=== PATIENT | female | born 1985 | race Caucasian/White ===

== ENCOUNTER 2017-06-18 11:50 | Emergency (ER) | payer BC, OTHER ==
[2017-06-18 12:00] VITALS: RESP 18
[2017-06-18] MEDS ORDERED: methylPREDNISolone SOD SUCCI 125 MG/2 ML VIAL IM STA (12:09)
[2017-06-18] MEDS ORDERED: IPRATROPIUM-ALBUTEROL 3 ML NEB INHALATION STA (12:09)
--- NOTE | 2017-06-18 12:18 | ED ---
General Adult HPI - General Chief complaint: Shortness of Breath Stated complaint: JOB Time Seen by Provider: 06/18/17 12:01 Source: patient, RN notes reviewed Mode of arrival: ambulatory Limitations: no limitations - History of Present Illness Initial comments: Patient 32-year-old female with significant past medical history for asthma, who presents emergency room today with a chief complaint of asthma exacerbation. She does admit that she was at work when she began feeling increased tightness. She states she tried her inhaler. Does not have access to her nebulizer at work and came here to the emergency room. Patient does admit to having is over chest which is consistent with asthma that she's had in the past. She doesn't that her last today she's been having some symptoms but was greatly increased this morning while at work. Patient denies any other complaints or associated symptoms at this time. Patient denies any recent fever , chills, shortness of breath, chest pain, back pain, abdominal pain, nausea or vomiting, numbness or tingling, dysuria or hematuria, constipation or diarrhea, headaches or visual changes, or any other complaints. - Related Data Home Medications Medication Instructions Recorded Confirmed Mometasone/Formoterol [Dulera 200 2 puff INHALATION RT-BID 06/18/17 06/18/17 Mcg/5 Mcg Inhaler] Montelukast Sodium [Singulair] 10 mg PO HS 06/18/17 06/18/17 Phentermine HCl [Adipex-P] 37.5 mg PO QAM 06/18/17 06/18/17 Pseudoephedrine HCl [Sudafed] 30 mg PO Q4HR PRN 06/18/17 06/18/17 Tri-Mary 28 1 tab PO HS 06/18/17 06/18/17 Previous Rx's Medication Instructions Recorded Fluticasone Propionate [Flonase 1 - 2 spray EA NOSTRIL DAILY 5 Days 06/18/17 Allergy Relief] predniSONE 60 mg PO DAILY 5 Days 06/18/17 Allergies Allergy/AdvReac Type Severity Reaction Status Date / Time beclomethasone [From Qvar] Allergy Nausea Verified 06/18/17 12:59 Review of Systems ROS Statement: Those systems with pertinent positive or pertinent negative responses have been documented in the HPI. ROS Other: All systems not noted in ROS Statement are negative. Past Medical History Past Medical History: Asthma History of Any Multi-Drug Resistant Organisms: None Reported Past Surgical History: Section Additional Past Surgical History / Comment(s): Dilation and curettage Past Psychological History: No Psychological Hx Reported Smoking Status: Never smoker Past Alcohol Use History: None Reported Past Drug Use History: None Reported General Exam - General Exam Comments Initial Comments: General: The patient is awake and alert, in no distress, and does not appear acutely ill. Eye: Pupils are equal, round and reactive to light, extra-ocular movements are intact. No nystagmus. There is normal conjunctiva bilaterally. No signs of icterus. Ears, nose, mouth and throat: There are moist mucous membranes and no oral lesions. Neck: The neck is supple, there is no tenderness or JVD. Cardiovascular: There is a regular rate and rhythm. No murmur, rub or gallop is appreciated. Respiratory: Lungs are clear to auscultation, respirations are non-labored, breath sounds are equal. No wheezes, stridor, rales, or rhonchi. Musculoskeletal: Normal ROM, no tenderness. Strength 5/5. Sensation intact. Pulses equal bilaterally 2+. Neurological: A&O x 3. CN II-XII intact, There are no obvious motor or sensory deficits. Coordination appears grossly intact. Speech is normal. Skin: Skin is warm and dry and no rashes or lesions are noted. Psychiatric: Cooperative, appropriate mood & affect, normal judgment. Limitations: no limitations Course Vital Signs 06/18/17 06/18/17 06/18/17 11:58 12:19 12:36 Temperature 98.2 F Pulse Rate 73 72 77 Respiratory 18 Rate Blood Pressure 118/70 O2 Sat by Pulse 98 Oximetry Medical Decision Making - Medical Decision Making Patient given breathing treatment here in the emergency room also shot of steroids. She is feeling much better. Vitals are stable. Patient feeling well. Will be discharged home advised to continue with her breathing treatments at home. Will be continued on steroids. Advised to follow-up family doctor return to emergency room for any other concerns. Disposition Clinical Impression: Asthma exacerbation Disposition: HOME SELF-CARE Condition: Good Instructions: Bronchospasm (ED) Additional Instructions: Please use medication as discussed. Please follow-up with family doctor in the next 2 days of symptoms have not improved. Please return to emergency room if the symptoms increase or worsen or for any other concerns. Prescriptions: Fluticasone Propionate [Flonase Allergy Relief] 1 - 2 spray EA NOSTRIL DAILY 5 Days predniSONE 60 mg PO DAILY 5 Days Referrals: Jona Aaron DO [Primary Care Provider] - 1-2 days Time of Disposition: 13:11
[2017-06-18 13:25] VITALS: BP 127/81; PULSE 98; TEMP 97.5
== END 2017-06-18 13:24 | disposition home or self-care (01) ==
LOC: EC 11:50
DX: J45.901 Unspecified asthma with (acute) exacerbation (principal); Z79.51 Long term (current) use of inhaled steroids; Z79.899 Other long term (current) drug therapy; Z88.8 Allergy status to other drugs, medicaments and biological substances
CPT/HCPCS: 94640; 99284; 96372; J2930

== ENCOUNTER 2017-10-29 08:19 | Emergency (ER) | payer BC, OTHER ==
[2017-10-29 08:31] VITALS: BP 124/76; PULSE 95; RESP 18; TEMP 100.1
--- NOTE | 2017-10-29 08:46 | ED ---
General Adult HPI - General Chief complaint: Upper Respiratory Infection Stated complaint: Sore throat Time Seen by Provider: 10/29/17 08:33 Source: patient, RN notes reviewed Mode of arrival: ambulatory Limitations: no limitations - History of Present Illness Initial comments: The patient is a 32-year-old female who presents emergency room today with chief complaint of cough congestion and body aches over the last 2 days. She admits that symptoms started 2 days ago. She missed a sore throat. States it hurts when she swallows. States she's had chills recorded temperatures. States she has felt hot at times. Patient denies any other sick contacts at home. Patient denies any recent shortness of breath, chest pain, back pain, abdominal pain, nausea or vomiting, numbness or tingling, dysuria or hematuria, constipation or diarrhea, headaches or visual changes, or any other complaints. - Related Data Home Medications Medication Instructions Recorded Confirmed Mometasone/Formoterol [Dulera 200 2 puff INHALATION RT-BID 06/18/17 10/29/17 Mcg/5 Mcg Inhaler] Montelukast Sodium [Singulair] 10 mg PO HS 06/18/17 10/29/17 Tri-Mary 28 1 tab PO HS 06/18/17 10/29/17 D-Methorphan/PE/Acetaminophen 2 tab PO DAILY PRN 10/29/17 10/29/17 [Theraflu Expressmax Day Caplet] Previous Rx's Medication Instructions Recorded Oseltamivir [Tamiflu] 75 mg PO Q12HR 5 Days cap 10/29/17 Allergies Allergy/AdvReac Type Severity Reaction Status Date / Time beclomethasone [From Qvar] AdvReac Nausea Verified 10/29/17 08:53 Review of Systems ROS Statement: Those systems with pertinent positive or pertinent negative responses have been documented in the HPI. ROS Other: All systems not noted in ROS Statement are negative. Past Medical History Past Medical History: Asthma History of Any Multi-Drug Resistant Organisms: None Reported Past Surgical History: Section Additional Past Surgical History / Comment(s): Dilation and curettage Past Psychological History: No Psychological Hx Reported Smoking Status: Never smoker Past Alcohol Use History: None Reported Past Drug Use History: None Reported General Exam - General Exam Comments Initial Comments: General: The patient is awake and alert, in no distress, and does not appear acutely ill. Eye: Pupils are equal, round and reactive to light, extra-ocular movements are intact. No nystagmus. There is normal conjunctiva bilaterally. No signs of icterus. Ears, nose, mouth and throat: There are moist mucous membranes and no oral lesions. Neck: The neck is supple, there is no tenderness or JVD. Cardiovascular: There is a regular rate and rhythm. No murmur, rub or gallop is appreciated. Respiratory: Lungs are clear to auscultation, respirations are non-labored, breath sounds are equal. No wheezes, stridor, rales, or rhonchi. Musculoskeletal: Normal ROM, no tenderness. Strength 5/5. Sensation intact. Pulses equal bilaterally 2+. Neurological: A&O x 3. CN II-XII intact, There are no obvious motor or sensory deficits. Coordination appears grossly intact. Speech is normal. Skin: Skin is warm and dry and no rashes or lesions are noted. Psychiatric: Cooperative, appropriate mood & affect, normal judgment. Limitations: no limitations Course Vital Signs 10/29/17 08:28 Temperature 100.1 F H Pulse Rate 95 Respiratory 18 Rate Blood Pressure 124/76 O2 Sat by Pulse 98 Oximetry Medical Decision Making - Medical Decision Making Patient's chest x-rays negative. Patient's symptoms are consistent with influenza. Patient will be treated with Tamiflu. Advised Tylenol Motrin for body aches. Advised to return to emergency room or follow-up family doctor if any symptoms increase or worsen. Disposition Clinical Impression: Influenza Disposition: HOME SELF-CARE Condition: Good Instructions: Influenza (ED) Additional Instructions: Please use medication as discussed. Please follow-up with family doctor in the next 2 days of symptoms have not improved. Please return to emergency room if the symptoms increase or worsen or for any other concerns. Prescriptions: Oseltamivir [Tamiflu] 75 mg PO Q12HR 5 Days cap Referrals: Jona Aaron DO [Primary Care Provider] - 1-2 days Time of Disposition: 09:33
--- NOTE | 2017-10-29 09:24 | XR ---
EXAMINATION TYPE: XR chest 2V DATE OF EXAM: 10/29/2017 COMPARISON: Chest x-ray April 24, 2015. HISTORY: Cough and congestion for a few days. TECHNIQUE: Frontal and lateral views of the chest are obtained. FINDINGS: There is no focal air space opacity, pleural effusion, or pneumothorax seen. The cardiac silhouette size is within normal limits. The osseous structures are intact. IMPRESSION: No suspicious acute pulmonary process.
== END 2017-10-29 09:42 | disposition home or self-care (01) ==
LOC: EC 08:19
DX: J11.1 Influenza due to unidentified influenza virus with other respiratory manifestations (principal); J45.909 Unspecified asthma, uncomplicated; Z88.8 Allergy status to other drugs, medicaments and biological substances; Z79.51 Long term (current) use of inhaled steroids; Z79.899 Other long term (current) drug therapy
CPT/HCPCS: 71046; 99283

== ENCOUNTER → 2021-02-17 | Outpatient (CLI) | payer BC ==
--- NOTE | 2021-02-17 09:10 | US ---
EXAMINATION TYPE: US abdomen complete DATE OF EXAM: 02/17/2021 COMPARISON: NONE CLINICAL HISTORY: R10.13 EPIGASTRIC PAIN. Midline pain for a few months, no nausea or vomiting, EXAM MEASUREMENTS: Liver Length: 19.7 cm Gallbladder Wall: 0.2 cm CBD: 0.5 cm Spleen: 11.9 cm Right Kidney: 11.6 x 5.1 x 4.9cm Left Kidney: 10.5 x 3.6 x 4.9 cm Pancreas: The head and tail of the pancreas are poorly visualized. Liver: difficult to penetrate, diffuse fatty infiltration, mildly enlarged Gallbladder: wnl Evidence for sonographic Connolly's sign: no CBD: wnl Spleen: wnl Right Kidney: wnl Left Kidney: wnl Upper IVC: wnl Abd Aorta: wnl The liver is echogenic, consistent with diffuse fatty infiltration. The intrahepatic portion of the IVC and proximal abdominal aorta are within normal limits. There is no evidence of cholelithiasis. Common bile duct is unremarkable. The visualized portions of the pancreas are homogenous. The splee n is unremarkable. Kidneys are symmetric and free of hydronephrosis. No renal lesions are seen. IMPRESSION: 1. Diffuse fatty infiltration of the liver. 2. The head and tail of the pancreas are poorly visualized. 3. Otherwise unremarkable complete abdominal ultrasound.
== END | disposition home or self-care (01) ==
LOC: RADUSWWP 07:25
PROVIDERS: ATTEND Family Medicine
DX: K76.0 Fatty (change of) liver, not elsewhere classified (principal)
CPT/HCPCS: 76700

== ENCOUNTER → 2021-06-06 | Outpatient (CLI) | payer BC ==
--- NOTE | 2021-06-06 16:14 | NM ---
EXAMINATION TYPE: NM hepatobiliary w EF DATE OF EXAM: 06/06/2021 COMPARISON: Ultrasound 02/17/2021 HISTORY: Unspecified abdominal pain TECHNIQUE: After the intravenous administration of 4.15 mCi Tc 99m Mebrofenin hepatobiliary scintigra phy is performed. Immediate images post injection. FINDINGS: There is satisfactory initial accumulation of tracer by the liver. The gallbladder is visualized wit hin 8 minutes. The small bowel activity is noted within 42 minutes. At one hour 8 ounces of oral en sure plus is given to mimic CCK and gallbladder ejection fraction is calculated at 34 %, slightly bel ow the lower limit of the normal range. Therefore there is no scintigraphic evidence of cystic or co mmon bile duct obstruction to suggest acute cholecystitis. IMPRESSION: There is a slight decrease in gallbladder ejection fraction as described..
== END | disposition home or self-care (01) ==
LOC: RADNMMAIN 12:53
PROVIDERS: ATTEND Family Medicine
DX: R93.2 Abnormal findings on diagnostic imaging of liver and biliary tract (principal)
CPT/HCPCS: 78226; A9537

== ENCOUNTER → 2021-09-04 | Outpatient (CLI) | payer BC ==
[2021-09-04 15:11] LABS: HCT 41.2 % (37.2-46.3); HGB 13.3 g/dL (12.0-15.0); MCH 28.5 pg (27.0-32.0); MCHC 32.3 g/dL (32.0-37.0); MCV 88.4 fL (80.0-97.0); Mean Platelet Volume 10.8 fL (9.5-12.2); Platelet Count 318 X 10*3/uL (140-440); RBC 4.66 X 10*6/uL (4.10-5.20); RDW 11.9 % (11.5-14.5); WBC 6.87 X 10*3/uL (4.50-10.00)
[2021-09-04 15:44] LABS: African American GFR (CKD) 128.3 (60.0-200.0); Albumin 4.1 g/dL (3.8-4.9); Albumin/Globulin Ratio 1.64 (1.60-3.17); Anion Gap 10.3 mmol/L (10.00-18.00); BUN/Creat Ratio 13.86 Ratio (12.00-20.00); Blood Urea Nitrogen 9.7 mg/dL (9.0-27.0); Calcium 8.9 mg/dL (8.7-10.3); Carbon Dioxide 22.7 mmol/L (20.0-27.5); Globulin 2.5 g/dL (1.6-3.3); Non-African American GFR(CKD) 110.7 (60.0-200.0); Potassium 4.1 mmol/L (3.5-5.5); Total Bilirubin 0.2 mg/dL (0.30-1.20); Total Protein 6.6 g/dL (6.2-8.2)
== END | disposition home or self-care (01) ==
LOC: LABWHC1 08:56
PROVIDERS: ATTEND Surgery
DX: K82.8 Other specified diseases of gallbladder (principal)
CPT/HCPCS: 36415; 80053; 85027

== ENCOUNTER 2021-10-10 07:29 | Day surgery (SDC) | payer BC ==
[2021-10-03 12:43] VITALS: BMI 34.4
[~2021-10-10 07:29] MED LIST: ACETAMINOPHEN TAB 500 MG TAB PO PRN; HEPARIN SODIUM,PORCINE/PF 5,000 UNIT/0.5 ML SYRINGE SQ PRN; LACTATED RINGERS 1,000 ML IV SCH; ONDANSETRON 4 MG/2 ML VIAL IVP ONE
--- NOTE | 2021-10-10 07:46 | P.GSHP ---
History of Present Illness H&P Date: 10/10/21 Chief Complaint: Biliary dyskinesia 36-year-old female seen in the office. Refer to recent history and physical. Complains of pain midepigastric and right upper quadrant. Growing more frequent. Symptoms began about a year ago. Ultrasound normal. HIDA scan shows a borderline low ejection fraction. Past Medical History Past Medical History: Asthma Additional Past Medical History / Comment(s): GALLBLADDER ISSUE History of Any Multi-Drug Resistant Organisms: None Reported Past Surgical History: Section Additional Past Surgical History / Comment(s): Dilation and curettage Past Anesthesia/Blood Transfusion Reactions: No Reported Reaction Smoking Status: Never smoker - Past Family History Mother Family Medical History: No Reported History Medications and Allergies Home Medications Medication Instructions Recorded Confirmed Type Mometasone/Formoterol [Dulera 200 2 puff INHALATION RT-BID 06/18/17 10/03/21 History Mcg/5 Mcg Inhaler] Montelukast Sodium [Singulair] 10 mg PO HS 06/18/17 10/03/21 History Dicyclomine [Bentyl] 10 mg PO TID 10/03/21 10/03/21 History Norgestimate-Ethinyl Estradiol 1 tab PO HS 10/03/21 10/03/21 History [Tri-Sprintec Tablet] Omeprazole 20 mg PO HS 10/03/21 10/03/21 History Allergies Allergy/AdvReac Type Severity Reaction Status Date / Time beclomethasone [From Qvar] AdvReac Nausea Verified 10/03/21 12:21 Surgical - Exam Physical exam: General: Well-developed, well-nourished HEENT: Normocephalic, sclerae nonicteric Abdomen: Nontender, nondistended Extremities: No edema Neuro: Alert and oriented Assessment and Plan (1) Biliary dyskinesia Narrative/Plan: 36-year-old female with symptoms typical for biliary source of pain. Recent HIDA scan results reviewed in detail with patient. We'll proceed with laparoscopic, possible open cholecystectomy at this time. Risks of bleeding, infection, bile leak, bile duct injury, retained common bile duct stone, trocar injury, conversion to an open procedure, hernia, anesthesia related complications were reviewed. The patient understands and wishes to proceed. Current Visit: Yes Status: Acute Code(s): K82.8 - OTHER SPECIFIED DISEASES OF GALLBLADDER SNOMED Code(s): 263952626
[2021-10-10] MEDS ORDERED: ONDANSETRON 4 MG/2 ML VIAL IVP ONE ×3 (08:24→13:43)
[2021-10-10] MEDS ORDERED: GLYCOPYRROLATE 0.2 MG/ML 2 ML VIAL ONE (08:54)
[2021-10-10] MEDS ORDERED: ROCURONIUM 10 MG/ML (5 ML VIAL) IV ONE (08:54)
[2021-10-10] MEDS ORDERED: KETAMINE 10 MG/ML 20 ML VIAL ONE (08:54)
[2021-10-10] MEDS ORDERED: NEOSTIGMINE 1 MG/ML 10 ML VIAL ONE (08:54)
[2021-10-10] MEDS ORDERED: MIDAZOLAM 2 MG/2 ML VIAL ONE (08:54)
[2021-10-10] MEDS ORDERED: PROPOFOL 10 MG/ML 20 ML VIAL IV ONE (08:54)
[2021-10-10] MEDS ORDERED: fentaNYL (PF) 50 MCG/ML 2 ML AMP ONE (08:54)
[2021-10-10] MEDS ORDERED: LIDOCAINE 1% INJ 10MG/ML (20 ML MDV) ONE (08:54)
[2021-10-10] MEDS ORDERED: SUCCINYLCHOLINE CHLORIDE 100 MG/5 ML SYR IV ONE (08:54)
[2021-10-10] MEDS ORDERED: BUPIVACAINE (PF) 0.25% 30 ML VIAL SQ ONE (09:20)
--- NOTE | 2021-10-10 09:54 | P.OP ---
Date of Procedure: 10/10/21 Procedure(s) Performed: PREOPERATIVE DIAGNOSIS: Biliary dyskinesia POSTOPERATIVE DIAGNOSIS: Same PROCEDURE: Laparoscopic cholecystectomy SURGEON: Lee EBL: Minimal see anesthesia record ANESTHESIA: Gen. COMPLICATIONS: None OPERATIVE PROCEDURE: The patient was brought and placed on the operating room table in the supine position. The patient was placed under general anesthesia at that time. The abdomen was prepped and draped in the usual sterile fashion. A small vertical infraumbilical incision was made. The fascia was grasped with the Kelyl forceps. The fascia was retracted anteriorly. The Veress needle was advanced into the peritoneal cavity. The saline drop test was normal. Insufflation took place up to 15 mmHg. A 5 mm optical trocar was advanced and the peritoneal cavity. 2 additional 5 mm trochars were placed in the right upper quadrant under direct visualization. A 12 mm trocar was advanced into the epigastric incision site. The gallbladder was retracted superiorly and laterally. The peritoneum overlying the infundibulum was bluntly dissected. The patient's cystic duct was visualized. The junction between the cystic duct common and hepatic duct was identified. The critical view of safety was achieved after blunt dissection. The cystic duct was then divided after p lacement of 3 12 mm clips on the patient's side and one on the specimen side. The cystic artery was identified and clipped as well. A small vessel was seen along the gallbladder fossa and clipped as well. The gallbladder was then removed from the liver bed using electrocautery. The gallbladder was then removed from the epigastric trocar site with an Endo Catch bag. The gallbladder fossa was irrigated with saline. There was no evidence of any bleeding or biliary drainage seen. The fascia at the 12 millimeter site was closed using a Mejia-Aly 0 Vicryl stitch. The trochars were then removed. The skin at all 4 sites was closed using a 4-0 Monocryl stitch. Skin glue was utilized on the incision sites. At the end of this procedure the sponge and needle counts were correct. DISPOSITION: Stable to the recovery room
[2021-10-10] MEDS: HYDROmorphone 0.5 MG/0.5 ML SYRINGE IVP PRN ×2 (10:05→10:23)
[2021-10-10 10:12] VITALS: TEMP 97
[2021-10-10] MEDS ORDERED: LACTATED RINGERS 1,000 ML IV ONE (10:29)
[2021-10-10] MEDS ORDERED: ONDANSETRON 4 MG/2 ML VIAL ONE ×2 (11:33→13:40)
[2021-10-10] MEDS ORDERED: ACETAMINOPHEN TAB 325 MG TAB PO SCH (12:00)
[2021-10-10] MEDS ORDERED: IBUPROFEN 600 MG TAB PO SCH ×2 (13:00→15:00)
[2021-10-10 14:50] VITALS: BP 119/84; PULSE 63; RESP 16
== END 2021-10-10 15:12 | disposition home or self-care (01) ==
LOC: OR 07:29
PROVIDERS: ATTEND Surgery
DX: K82.8 Other specified diseases of gallbladder (principal); K80.10 Calculus of gallbladder with chronic cholecystitis without obstruction; J45.909 Unspecified asthma, uncomplicated; Z98.891 History of uterine scar from previous surgery; Z88.8 Allergy status to other drugs, medicaments and biological substances; Z98.890 Other specified postprocedural states; Z79.51 Long term (current) use of inhaled steroids; Z79.3 Long term (current) use of hormonal contraceptives; Z79.899 Other long term (current) drug therapy
CPT/HCPCS: 81025; 88304; 47562; J2250; J2710; J0690; J2405; J2001; J3010; J0330; J2704; J1170; J1790; J1644

== ENCOUNTER → 2023-07-23 | Outpatient (CLI) | payer BC ==
--- NOTE | 2023-07-23 11:17 | CT ---
EXAMINATION TYPE: CT abdomen pelvis wo con DATE OF EXAM: 07/23/2023 COMPARISON: None HISTORY: 38-year-old female R1 0.33, periumbilical pain, abdominal pain CT DLP: 949.7 mGycm. Automated exposure control for dose reduction was used. TECHNIQUE: Contiguous axial scanning of the abdomen and pelvis without IV contrast. Coronal and sagit leighton reconstructions performed. FINDINGS: Heart normal size without pericardial effusion. Lung bases are without pleural effusion. Tiny hiatal hernia. Liver enlarged measuring 19.8 cm with low attenuation compatible with fatty infiltration. Cholecystec mary clips. Adrenal glands, kidneys, spleen with tiny hilar splenule, and pancreas show no gross abnormality by n oncontrast CT. No dilated small bowel, free fluid, or free air. No mesenteric or retroperitoneal lymphadenopathy. Normal appendix. Only minimal scattered stool. No pericolonic inflammatory change. Bladder is urine distended. Uterus anteverted but may be retroflexed. Both ovaries are visualized. Tr alfredo cul-de-sac free fluid likely physiologic. No pelvic lymphadenopathy seen. Bones: Mild facet arthropathy lower lumbar spine. IMPRESSION: 1. Hepatomegaly at 19.8 cm with at least moderate hepatic steatosis. Appropriate clinical management advised. 2. Tiny hiatal hernia.
== END | disposition home or self-care (01) ==
LOC: RADCTMAIN 06:29
PROVIDERS: ATTEND Family Medicine
DX: K44.9 Diaphragmatic hernia without obstruction or gangrene (principal); K76.0 Fatty (change of) liver, not elsewhere classified; R16.0 Hepatomegaly, not elsewhere classified
CPT/HCPCS: 74176

== ENCOUNTER → 2024-04-14 | Outpatient (CLI) | payer BC ==
--- NOTE | 2024-04-21 12:23 | MM ---
Reason for Exam: Screening (asymptomatic). Baseline mammogram. Patient History: Menarche at age 13. First Full-Term at age 21. Patient has history of breast feeding. Currently using Hormonal Contraceptives, for 10 years. Last menstrual period: 04/14/2024 Risk Values: Claribel 5 year model risk: 0.5%. NCI Lifetime model risk: 8.3%. Prior Study Comparison: Patient's first Mammogram. Tissue Density: The breasts are heterogeneously dense, which may obscure small masses. Findings: Analyzed By CAD. Right breast: There is no suspicious group of microcalcifications or new suspicious mass. Left breast: There is no suspicious group of microcalcifications or new suspicious mass. Overall Assessment: Negative, BI-RAD 1 Management: Screening Mammogram of both breasts in [address] [facility] will attempt to contact patient to return for supplemental views and ultrasound if indicated. Patient should continue monthly self-breast exams. A clinical breast exam by your physician is recommended on an annual basis. This exam should not preclude additional follow-up of suspicious palpable abnormalities. Note on Claribel scores and lifetime risk: 1. A Claribel score greater than 3% is considered moderate risk. If this is the case, consider specialist referral to assess eligibility for a risk reducing agent. 2. If overall lifetime risk for the development of breast cancer is 20% or higher, the patient may qualify for future screening with alternating mammogram and breast MRI. Electronically signed and approved by: Kale Cronin DO
== END | disposition home or self-care (01) ==
LOC: RADMAMWWP 15:33
PROVIDERS: ATTEND Family Medicine
DX: Z12.31 Encounter for screening mammogram for malignant neoplasm of breast (principal)
CPT/HCPCS: 77067